=== PATIENT | female | born 1975 | race American Indian/Alaskan Native ===

== ENCOUNTER 2019-07-26 09:24 | Emergency (ER) | payer OTHER ==
[2019-07-26] MEDS ORDERED: ASPIRIN 325 MG TAB PO ONE (09:39)
--- NOTE | 2019-07-26 10:27 | XRay Report ---
CHEST 1 VIEW 07/26/2019 9:57 AM INDICATION / CLINICAL INFORMATION: Chest Pain. COMPARISON: None available. FINDINGS: SUPPORT DEVICES: None. HEART / MEDIASTINUM: No significant abnormality. LUNGS / PLEURA: No significant pulmonary or pleural abnormality. No pneumothorax. ADDITIONAL FINDINGS: No significant additional findings. IMPRESSION: 1. No acute findings. Signer Name: Klever Lucas MD Signed: 07/26/2019 10:23 AM Workstation Name: [id number]
[2019-07-26 10:32] LABS: Basophils % (Auto) 0.6 % (0.0-1.8); Eosinophils # (Auto) 0.1 K/mm3 (0.0-0.4); Eosinophils % (Auto) 1.9 % (0.0-4.3); Hematocrit 35.6 % (30.3-42.9); Hemoglobin 11.6 gm/dl (10.1-14.3); Lymphocytes # (Auto) 2.3 K/mm3 (1.2-5.4); Lymphocytes % (Auto) 47.4 % (13.4-35.0); Mean Corpuscular HGB Conc 33 % (30-34); Mean Corpuscular Volume 82 fl (79-97); Monocytes # (Auto) 0.4 K/mm3 (0.0-0.8); Monocytes % (Auto) 7.7 % (0.0-7.3); Platelet Count 229 K/mm3 (140-440); Red Blood Count 4.33 M/mm3 (3.65-5.03); Red Cell Distribution Width 15.1 % (13.2-15.2)
[2019-07-26 10:39] LABS: BUN/Creatinine Ratio 16; Blood Urea Nitrogen 13 mg/dL (7-17); Calcium 9.3 mg/dL (8.4-10.2); Hemolysis Index 5
--- NOTE | 2019-07-26 10:41 | Emergency Department Report ---
HPI - General Chief Complaint: Chest Pain Time Seen by Provider: 07/26/19 10:02 - [facility] HPI: Room 24 The patient is a 43-year-old female presenting with chief complaint of chest pain. The patient states her symptoms began this morning at 07:00 while bernadette ross. She complains of sharp and intermittent substernal chest pain associated with shortness of breath and diaphoresis. Patient denies nausea or vomiting. She denies pleurisy. Patient denies any recent flights or long car trips. The patient currently gets her pain score of 2/10. Patient states she's had intermittent episodes of chest pain for approximately 1 year but has never had a stress test or cardiac catheterization ED Past Medical Hx - Past Medical History Previous Medical History?: Yes Additional medical history: Fibroids - Surgical History Past Surgical History?: Yes Additional Surgical History: Fibroid surgery in 2010 - Family History Family history: no significant - Social History Smoking Status: Never Smoker Substance Use Type: None (denies illicit drug use), Alcohol (occasional) ED Review of Systems ROS: Stated complaint: CHEST PAIN Other details as noted in HPI Constitutional: diaphoresis Eyes: denies: eye pain ENT: denies: throat pain Respiratory: shortness of breath Cardiovascular: chest pain Endocrine: no symptoms reported Gastrointestinal: denies: nausea, vomiting Genitourinary: denies: dysuria Musculoskeletal: denies: back pain Neurological: denies: headache Physical Exam - Physical Exam Vital Signs: Vital Signs 07/26/19 09:35 Temperature 97.8 F Pulse Rate 86 Respiratory 18 Rate Blood Pressure 135/90 O2 Sat by Pulse 99 Oximetry Physical Exam: GENERAL: The patient is well-developed well-nourished female lying on stretcher not appearing to be in acute distress. [] HEENT: Normocephalic. Atraumatic. Extraocular motions are intact. Patient has moist mucous membranes. NECK: Supple. Trachea Midline CHEST/LUNGS: Clear to auscultation. There is no respiratory distress noted. HEART/CARDIOVASCULAR: Regular. There is no tachycardia. There is no gallop rub or murmur. ABDOMEN: Abdomen is soft, nontender. Patient has normal bowel sounds. There is no abdominal distention. SKIN: There is no rash. There is no diaphoresis. NEURO: The patient is awake, alert, and oriented. The patient is cooperative. The patient has normal speech MUSCULOSKELETAL: There is no evidence of acute injury. ED Course Vital Signs 07/26/19 09:35 Temperature 97.8 F Pulse Rate 86 Respiratory 18 Rate Blood Pressure 135/90 O2 Sat by Pulse 99 Oximetry - Consultations Consultation #1: 07/26/19 13:55 [facility] called 07/26/19 14:16 Case discussed with [place] physician. Will transfer patient to [facility] ED Medical Decision Making - Lab Data Result diagrams: 07/26/19 09:43 07/26/19 09:43 Laboratory Tests 07/26/19 07/26/19 07/26/19 09:43 09:43 10:49 WBC 4.8 RBC 4.33 Hgb 11.6 Hct 35.6 MCV 82 MCH 27 L MCHC 33 RDW 15.1 Plt Count 229 Lymph % (Auto) 47.4 H Thayer % (Auto) 7.7 H Eos % (Auto) 1.9 Baso % (Auto) 0.6 Lymph # 2.3 Thayer # 0.4 Eos # 0.1 Baso # 0.0 Seg Neutrophils % 42.4 Seg Neutrophils # 2.0 D-Dimer 709.26 H Sodium 138 Potassium 4.2 Chloride 100.4 Carbon Dioxide 23 Anion Gap 19 BUN 13 Creatinine 0.8 Estimated GFR > 60 BUN/Creatinine Ratio 16 Glucose 69 Calcium 9.3 Troponin T < 0.010 07/26/19 12:33 WBC RBC Hgb Hct MCV MCH MCHC RDW Plt Count Lymph % (Auto) Thayer % (Auto) Eos % (Auto) Baso % (Auto) Lymph # Thayer # Eos # Baso # Seg Neutrophils % Seg Neutrophils # D-Dimer Sodium Potassium Chloride Carbon Dioxide Anion Gap BUN Creatinine Estimated GFR BUN/Creatinine Ratio Glucose Calcium Troponin T < 0.010 - EKG Data -: EKG Interpreted by Me EKG shows normal: sinus rhythm Rate: normal - EKG Data When compared to previous EKG there are: previous EKG unavailable Interpretation: subendocardial ischemia (ST depression in leads 2, 3, aVF, V4, V5, V6) - Radiology Data Radiology results: report reviewed (chest x-ray, VQ scan), image reviewed (chest x-ray, VQ scan) interpreted by me: Chest x-ray-no focal infiltrate, no pneumothorax [facility] [address] [place] [address] XRay Report Signed Patient: RENETTA MORE MR#: [id number] : 1975 Acct:[id number] Age/Sex: 43 / F ADM Date: 07/26/19 Loc: ED Attending Dr: Ordering Physician: BRIGHT VILLARREAL MD Date of Service: 07/26/19 Procedure(s): XR chest 1V ap Accession Number(s): [id number] cc: BRIGHT VILLARREAL MD Fluoro Time In Minutes: CHEST 1 VIEW 07/26/2019 9:57 AM INDICATION / CLINICAL INFORMATION: Chest Pain. COMPARISON: None available. FINDINGS: SUPPORT DEVICES: None. HEART / MEDIASTINUM: No significant abnormality. LUNGS / PLEURA: No significant pulmonary or pleural abnormality. No pneumothorax. ADDITIONAL FINDINGS: No significant additional findings. IMPRESSION: 1. No acute findings. Signer Name: Klever Lucas MD Signed: 07/26/2019 10:23 AM Workstation Name: [id number] Transcribed By: TL Dictated By: Klever Lucas MD Electronically Authenticated By: Klever Lucas MD Signed Date/Time: 07/26/19 1023 DD/ 1023 TD/TT: [facility] [address] [place] [address] Nuclear Medicine Report Signed Patient: RENETTA MORE MR#: [id number] : 1975 Acct:[id number] Age/Sex: 43 / F ADM Date: 07/26/19 Loc: ED Attending Dr: Ordering Physician: BRIGHT VILLARREAL MD Date of Service: 07/26/19 Procedure(s): NM lung scan perf/vent Accession Number(s): [id number] cc: BRIGHT VILLARREAL MD Nuclear medicine ventilation/perfusion lung scan Indication: Chest pain, shortness of breath TECHNICAL DATA: Inhaled administration followed by immediate static images of chest in multiple projections coordinated with breathing instructions. Followed by immediate static images of chest in multiple projections post I.V. injection. 12 millicuries of 133 Xenon is administered by inhalation. Pulmonary wash-in, equilibrium, and washout phases are performed. Then, 4.8 millicuries of 99m Tc MAA is administered intravenously. FINDINGS: The ventilation scan is normal without evidence of delayed washout. The perfusion scan demonstrates homogeneous uptake without evidence of segmental or s ubsegmental defects. IMPRESSION: Normal lung scan. Signer Name: Marion Nobles MD Signed: 07/26/2019 1:47 PM Workstation Name: [id number] Transcribed By: Dictated By: Marion Nobles MD Electronically Authenticated By: Marion Nobles MD Signed Date/Time: 07/26/19 134 DD/ 1345 TD/TT: - Differential Diagnosis ACS, PE, pericarditis, gerd Critical care attestation.: If time is entered above; I have spent that time in minutes in the direct care of this critically ill patient, excluding procedure time. ED Disposition Clinical Impression: Chest pain Disposition: OP ADMIT IP TO THIS HOSP Is pt being admited?: No Does the pt Need Aspirin: Yes Condition: Fair Instructions: Chest Pain (ED) Referrals: LUIS DANIEL BLACKWELL MD [Primary Care Provider] - 3-5 Days Time of Disposition: 14:16 (awaiting transport)
[2019-07-26] MEDS ORDERED: fentaNYL 100 MCG/2 ML INJ IV ONE ×2 (10:42→16:57)
[2019-07-26] MEDS ORDERED: NITROGLYCERIN 2% OINT 1 GM TP ONE (10:42)
[2019-07-26] MEDS ORDERED: ONDANSETRON 4 MG/2 ML INJ IV ONE (10:42)
--- NOTE | 2019-07-26 13:52 | Nuclear Medicine Report ---
Nuclear medicine ventilation/perfusion lung scan Indication: Chest pain, shortness of breath TECHNICAL DATA: Inhaled administration followed by immediate static images of chest in multiple projections coordin ed with breathing instructions. Followed by immediate static images of chest in multiple projections post I.V. injection. 12 millicuries of 133 Xenon is administered by inhalation. Pulmonary wash-in, equilibrium, and washout phases are performed. Then, 4.8 millicuries of 99m Tc MAA is administered intravenously. FINDINGS: The ventilation scan is normal without evidence of delayed washout. The perfusion scan demonstrates h omogeneous uptake without evidence of segmental or subsegmental defects. IMPRESSION: Normal lung scan. Signer Name: Marion Nobles MD Signed: 07/26/2019 1:47 PM Workstation Name: [id number]
[2019-07-26] MEDS ORDERED: ACETAMINOPHEN 325 MG TAB ONE (16:14)
[2019-07-26] MEDS ORDERED: ACETAMINOPHEN 325 MG TAB PO ONE ×2 (16:15→17:15)
[2019-07-26 18:14] VITALS: BP 122/80
== END 2019-07-26 17:05 | disposition other institution (70) ==
LOC: ED 09:24
DX: R07.89 Other chest pain (principal); Z98.890 Other specified postprocedural states; Z91.041 Radiographic dye allergy status
CPT/HCPCS: 36415; 71045; 78582; 80048; 84484; 85025; 85379; 93005; 93010; 96374; 96375; 96376; 99285; A9540; A9558; J2405; J3010